=== PATIENT | female | born 2000 | race Caucasian/White ===

== ENCOUNTER 2019-03-09 14:21 | Emergency (ER) | payer OTHER ==
[~2019-03-09] VITALS: Ht 170.2 cm; Wt 71.2 kg
[2019-03-09 14:24] VITALS: Ht 170.2 cm; Wt 71.2 kg
[2019-03-09 14:51] VITALS: BP 99/66
== END 2019-03-09 14:51 | disposition home or self-care (01) ==
LOC: ED 14:21
DX: J45.901 Unspecified asthma with (acute) exacerbation (principal)